=== PATIENT | male | born 2000 | race Caucasian/White ===

== ENCOUNTER 2021-07-02 16:15 | Emergency (ER) | payer OTHER, SELFPAY ==
[2021-07-02 16:20] VITALS: BP 134/82; PULSE 88; RESP 18; TEMP 36.6; O2SAT 99
--- NOTE | 2021-07-02 16:32 | ED.WOUNDLAC ---
HPI - Wound/Laceration General Chief Complaint: Wound/Laceration Stated Complaint: lac to right hand Time Seen by Provider: 07/02/21 16:25 History of Present Illness HPI narrative: 20-year-old male presents to the emergency room complaints of laceration to the right hand. Patient states that he was at work, when his hand struck a metal plate. Bleeding controlled prior to arrival. Patient states his tetanus is up-to-date. Related Data Home Medications Medication Instructions Recorded Confirmed No Home Medications 07/02/21 07/02/21 Allergies Allergy/AdvReac Type Severity Reaction Status Date / Time amoxicillin Allergy Mild Rash Verified 07/02/21 16:39 Review of Systems Review of Systems: CONSTITUTIONAL: Denies fever, chills, or sweats. EYES: Denies visual changes, redness, or discharge. ENT: Denies rhinorrhea, congestion, sore throat, or otalgia. CARDIOVASCULAR: Denies chest pain, palpitations, or edema. RESPIRATORY: Denies cough or dyspnea. GASTROINTESTINAL: Denies abdominal pain, nausea, vomiting, or diarrhea. GENITOURINARY: Denies dysuria or hematuria. SKIN: Reports laceration right hand MUSCULOSKELETAL: Denies back pain, joint pain, or myalgia. NEUROLOGIC: Denies headache, numbness, dizziness, or weakness. PSYCHIATRIC: Denies anxiety or depression. Exam Narrative: GENERAL: Well-appearing, well-nourished, and in no acute distress. HEAD: Normocephalic, atraumatic. EYES: PERRLA and EOMI. ENT: Nares clear, no rhinorrhea or epistaxis. Mucous membranes moist. Oropharynx without tonsillar hypertrophy exudate or other lesions. Bilateral TMs pearly neal nonbulging NECK: Supple. No adenopathy or masses. No carotid bruits or JVD CHEST: Clear to auscultation. No respiratory distress. No wheezes rales or rhonchi HEART: Regular rate and rhythm. No murmur heard. Normal peripheral pulses. ABDOMEN: Soft, nontender, nondistended, normal active bowel sounds. EXTREMITIES: Normal range of motion. No edema. SKIN: 2 cm linear laceration to the dorsal surface of the right hand NEURO: No focal deficits. Alert and oriented x3. PSYCH: Normal mood and affect. Course Vital Signs Vital signs: Vital Signs Temperature 36.6 C 07/02/21 16:20 Pulse Rate 88 05/18/22 16:20 Respiratory Rate 18 07/02/21 16:20 Blood Pressure 134/82 07/02/21 16:20 Pulse Oximetry 99 07/02/21 16:20 Temperature 36.6 C 07/02/21 16:20 Pulse Rate 88 07/02/21 16:20 Respiratory Rate 18 07/02/21 16:20 Blood Pressure 134/82 07/02/21 16:20 Pulse Oximetry 99 07/02/21 16:20 Procedures Laceration Laceration 1: Date: 07/02/21 Time: 16:53 Site: hand Side (If applicable): right Size (cm): 2 Description: linear Depth: simple, single layer Local Anesthetic: lidocaine 1% Amount of anesthesia used (mL): 2 Pre-repair: irrigated ====== Skin Level ====== Skin layer closed with: nylon Size (cm): 5-0 Number of sutures: 4 Technique: simple, interrupted ====== Subcutaneous Layer ====== ====== Muscle Layer ====== ====== Tendon Layer ====== Discharge Plan Discharge Clinical Impression: Laceration Patient Disposition: Home, Self-Care Condition: Stable Instructions: Antibiotic Form, Laceration (ED) Additional Instructions: Sutures come out in 10 days. Keep wound clean and dry. Tylenol and ibuprofen as needed for pain. Monitor for signs of infection which include: Redness, swelling, increased pain, purulent discharge Prescriptions: No Action No Home Medications RF: 0 Follow-up/Referrals: PHYSICIAN,BUILDINGS AND GROUNDS DIRECTOR [Primary Care Provider] - Time of Disposition: 16:54
[2021-07-02 17:11] VITALS: BP 122/77; PULSE 62; RESP 16; O2SAT 100
== END 2021-07-02 17:12 | disposition home or self-care (01) ==
PROVIDERS: Emergency Provider Nurse Practitioner Family
DX: S61.411A Laceration without foreign body of right hand, initial encounter (principal); W26.8XXA Contact with other sharp object(s), not elsewhere classified, initial encounter; Y99.0 Civilian activity done for income or pay
CPT/HCPCS: 12001; 99282